=== PATIENT | female | born 1985 | race Caucasian/White ===

== ENCOUNTER 2017-01-20 13:47 | Emergency (ER) | payer SELFPAY ==
[~2017-01-20] VITALS: Wt 72.5 kg
[~2017-01-20 13:47] MED LIST: ALPR0.5T PO; ATEN50TA PO; CIPR500T4 PO; NIT4 SL
== END 2017-01-20 23:16 | disposition left against medical advice (07) ==
LOC: E/R 13:47
DX: Z53.21 Procedure and treatment not carried out due to patient leaving prior to being seen by health care provider (principal)